=== PATIENT | male | born 1990 | race Caucasian/White ===

== ENCOUNTER 2025-03-25 14:32 | Emergency (ER) | payer SELFPAY ==
[~2025-03-25] VITALS: Ht 162.6 cm; Wt 68.2 kg
[2025-03-25 14:34] VITALS: TEMP 97.7
[2025-03-25 17:00] VITALS: BP 118/69; PULSE 65; RESP 17; O2SAT 98
[2025-03-25] MEDS: ACETAMINOPHEN 500 MG TABLET PO ONE (17:26)
[2025-03-25] MEDS: LIDOCAINE 5% TRANSDERMAL PATCH TD ONE (17:26)
[2025-03-25] MEDS: IBUPROFEN 400 MG TABLET PO ONE (17:26)
[2025-03-25] MEDS ORDERED: IBUP-1506 PO (17:39)
[2025-03-25] MEDS ORDERED: LIDO-57 TP (17:39)
== END 2025-03-25 17:56 | disposition home or self-care (01) ==
LOC: EMS 14:32
DX: S20.211A Contusion of right front wall of thorax, initial encounter (principal); Y04.0XXA Assault by unarmed brawl or fight, initial encounter; Y93.89 Activity, other specified; Y92.89 Other specified places as the place of occurrence of the external cause; Y99.8 Other external cause status
CPT/HCPCS: 71100; 99284; Z7502; Z7610